=== PATIENT | male | born 1985 | race Caucasian/White ===

== ENCOUNTER 2017-08-17 12:19 | Inpatient (IN) | payer OTHER ==
[~2017-08-17] VITALS: Ht 167.6 cm; Wt 69.9 kg
[2017-08-17] MEDS ORDERED: LISI-661 PO (12:57)
[2017-08-17 13:00] LABS: BASOPHILS % (AUTO) 0.7 % (0.0-2.0); HEMATOCRIT 42.9 % (41-53); HEMOGLOBIN 14.9 g/dL (13.5-17.5); LYMPHOCYTES % (AUTO) 20.9 % (22.0-44.0); MEAN CORPUSCULAR HEMOGLOBIN 28.6 pg (26.0-34.0); MEAN CORPUSCULAR HGB CONC 34.7 G/dL (31.0-37.0); MEAN CORPUSCULAR VOLUME 83 fL (80-100); MONOCYTES # (AUTO) 0.9 K/uL (0.1-1.0); MONOCYTES % (AUTO) 9.5 % (2.0-9.0); NEUTROPHILS # (AUTO) 6.4 K/uL (1.8-7.7); NEUTROPHILS % (AUTO) 65.9 % (40.0-70.0); PLATELET COUNT (AUTO) 264 K/uL (150-450); RED CELL DISTRIBUTION WIDTH 13.4 % (11.5-14.5)
[2017-08-17 13:16] LABS: ANION GAP 7 mmol/L (8-16); CALCIUM, TOTAL 8.8 mg/dL (8.8-10.5); CARBON DIOXIDE 28 mmol/L (22-29); CHLORIDE 106 mmol/L (98-107); CREATININE 0.89 mg/dL (0.60-1.30); GLOMERULAR FILTR. RATE CALC > 60 mL/min (>60); GLUCOSE,RANDOM 92 mg/dL (70-110); POTASSIUM 4.5 mmol/L (3.5-5.1); SODIUM SERUM 141 mmol/L (136-145); UREA NITROGEN, BLOOD 8 mg/dL (7-18)
[2017-08-17 13:22] LABS: ALANINE AMINOTRANSFERASE 23 U/L (12-78); ALBUMIN 4.1 g/dL (3.4-5.0); ALKALINE PHOSPHATASE 50 U/L (46-116); ASPARTATE AMINOTRANSFERASE 17 U/L (15-37); BILIRUBIN,TOTAL 0.6 mg/dL (0.1-1.0); TOTAL PROTEIN, SERUM 7.1 g/dL (6.4-8.2)
[2017-08-17 14:15] LABS: AMPHET/METH SCREEN,URINE NEGATIVE (NEGATIVE); BARBITURATE SCREEN, URINE NEGATIVE (NEGATIVE); BENZODIAZEPINES SCREEN,URINE NEGATIVE (NEGATIVE); CANNABINOID SCREEN,URINE POSITIVE (NEGATIVE); COCAINE SCREEN,URINE NEGATIVE (NEGATIVE); METHADONE SCREEN, URINE NEGATIVE (NEGATIVE); OPIATE SCREEN,URINE NEGATIVE (NEGATIVE)
[2017-08-17] MEDS ORDERED: DiphenhydrAMINE HCL 25 MG CAPSULE PO ONE (14:15)
[2017-08-17] MEDS ORDERED: LORazepam 1 MG TABLET PO ONE (14:15)
[2017-08-17] MEDS ORDERED: HALOPERIDOL 5 MG TABLET PO ONE (14:15)
[2017-08-17 14:16] LABS: PHENCYCLIDINE SCREEN,URINE NEGATIVE (NEGATIVE)
[2017-08-17] MEDS ORDERED: ZOLPIDEM TARTRATE 10 MG TABLET PO PRN (14:45)
[2017-08-17 16:00] LABS: CHOL/HDL RATIO 2.6 (4.2-7.3); CHOLESTEROL 143 mg/dL (131-200); HDL CHOLESTEROL 55 mg/dL (40-60); LDL CHOL (CALC.) 80 mg/dL (0-130); TRIGLYCERIDES 42 mg/dL (15-150)
[2017-08-17 18:41] VITALS: BP 139/81
[2017-08-17] MEDS: LORazepam 2 MG TABLET PO PRN (18:45)
[2017-08-17] MEDS: HALOPERIDOL 5 MG TABLET PO PRN (18:45)
[2017-08-17] MEDS ORDERED: CloNIDine HCL 0.1 MG TABLET PO PRN (22:00)
[2017-08-17] MEDS ORDERED: PETROLATUM,WHITE 71 GM JELLY TP PRN (22:00)
[2017-08-17] MEDS ORDERED: IBUPROFEN 600 MG TABLET PO PRN (22:00)
[2017-08-17] MEDS ORDERED: MAG HYDROX/AL HYDROX/SIMETH ES 30 ML SUSPENSION UDCUP PO PRN (22:00)
[2017-08-17] MEDS ORDERED: BACITRACIN 28.4 GM OINTMENT TP PRN (22:00)
[2017-08-17] MEDS ORDERED: ACETAMINOPHEN 325 MG TABLET PO PRN (22:00)
[2017-08-17] MEDS ORDERED: ALBUTEROL SULFATE HFA 90 MCG/PUFF 8 GM INHALER IH PRN (22:00)
[2017-08-17] MEDS ORDERED: MAGNESIUM HYDROXIDE SUSPENSION 30 ML UDCUP PO PRN (22:00)
[2017-08-17] MEDS ORDERED: LOPERAMIDE HCL 2 MG CAPSULE PO PRN (22:00)
[2017-08-17] MEDS ORDERED: ONDANSETRON HCL 4 MG TABLET PO PRN (22:00)
[2017-08-17] MEDS ORDERED: BENZOCAINE/MENTHOL LOZENGE MM PRN (22:00)
[2017-08-18 06:13] VITALS: BP 145/78
[2017-08-18 07:20] LABS: BASOPHILS % (AUTO) 0.9 % (0.0-2.0); EOSINOPHILS % (AUTO) 4.8 % (1.0-6.0); HEMATOCRIT 44.7 % (41-53); HEMOGLOBIN 15.7 g/dL (13.5-17.5); LYMPHOCYTES # (AUTO) 3.4 K/uL (1.0-4.8); LYMPHOCYTES % (AUTO) 36.2 % (22.0-44.0); MEAN CORPUSCULAR HEMOGLOBIN 29.2 pg (26.0-34.0); MEAN CORPUSCULAR VOLUME 84 fL (80-100); MONOCYTES # (AUTO) 0.8 K/uL (0.1-1.0); MONOCYTES % (AUTO) 9.1 % (2.0-9.0); NEUTROPHILS # (AUTO) 4.6 K/uL (1.8-7.7); PLATELET COUNT (AUTO) 300 K/uL (150-450); RED BLOOD CELL COUNT(AUTO) 5.36 MIL/uL (4.50-5.90); RED CELL DISTRIBUTION WIDTH 13.7 % (11.5-14.5)
[2017-08-18 08:06] VITALS: BP 142/71
[2017-08-18 08:18] LABS: ANION GAP 9 mmol/L (8-16); CALCIUM, TOTAL 9.2 mg/dL (8.8-10.5); CARBON DIOXIDE 29 mmol/L (22-29); CHLORIDE 106 mmol/L (98-107); CHOL/HDL RATIO 2.8 (4.2-7.3); CHOLESTEROL 158 mg/dL (131-200); CREATININE 0.91 mg/dL (0.60-1.30); GLOMERULAR FILTR. RATE CALC > 60 mL/min (>60); GLUCOSE,RANDOM 76 mg/dL (70-110); HDL CHOLESTEROL 56 mg/dL (40-60); LDL CHOL (CALC.) 92 mg/dL (0-130); PHOSPHORUS 4.7 mg/dL (2.5-4.9); POTASSIUM 4.2 mmol/L (3.5-5.1); SODIUM SERUM 144 mmol/L (136-145); THYROID STIMULATING HORMONE 1.31 uIU/mL (0.36-3.74); TRIGLYCERIDES 49 mg/dL (15-150); UREA NITROGEN, BLOOD 8 mg/dL (7-18)
[2017-08-18] MEDS: DOCUSATE SODIUM 100 MG CAPSULE PO SCH (08:34)
[2017-08-18] MEDS: LISINOPRIL 10 MG TABLET PO SCH (08:34)
[2017-08-18] MEDS: OMEPRAZOLE 20 MG CAPSULE PO SCH (08:34)
[2017-08-18] MEDS: DIVALPROEX SODIUM 500 MG DR TABLET PO SCH ×2 (13:19→16:53)
[2017-08-18 16:23] VITALS: BP 134/76
[2017-08-18] MEDS: HALOPERIDOL 5 MG TABLET PO PRN (16:53)
[2017-08-18] MEDS: LORazepam 2 MG TABLET PO PRN (16:53)
[2017-08-19 06:17] VITALS: BP 113/66
[2017-08-19 08:30] VITALS: BP 142/89
[2017-08-19] MEDS: LISINOPRIL 10 MG TABLET PO SCH (09:03)
[2017-08-19] MEDS: OMEPRAZOLE 20 MG CAPSULE PO SCH (09:03)
[2017-08-19] MEDS: DOCUSATE SODIUM 100 MG CAPSULE PO SCH (09:03)
[2017-08-19] MEDS: DIVALPROEX SODIUM 500 MG DR TABLET PO SCH ×2 (09:03→16:53)
[2017-08-19] MEDS: CHOLECALCIFEROL (VIT D3) 1,000 UNITS TABLET PO SCH (09:03)
[2017-08-19] MEDS: LORazepam 2 MG TABLET PO PRN ×2 (09:04→16:53)
[2017-08-19 16:14] VITALS: BP 120/76
[2017-08-19] MEDS: HALOPERIDOL 5 MG TABLET PO PRN (16:53)
[2017-08-20 02:00] VITALS: BP 126/84
[2017-08-20 08:04] VITALS: BP_SYST 107; BP_SYST 139; BP_DIAS 62; BP_DIAS 86
[2017-08-20] MEDS: CHOLECALCIFEROL (VIT D3) 1,000 UNITS TABLET PO SCH (08:27)
[2017-08-20] MEDS: LISINOPRIL 10 MG TABLET PO SCH (08:27)
[2017-08-20] MEDS: OMEPRAZOLE 20 MG CAPSULE PO SCH (08:27)
[2017-08-20] MEDS: DOCUSATE SODIUM 100 MG CAPSULE PO SCH (08:27)
[2017-08-20] MEDS: DIVALPROEX SODIUM 500 MG DR TABLET PO SCH (08:28)
[2017-08-20] MEDS ORDERED: DOCU-119 PO (10:24)
[2017-08-20] MEDS ORDERED: DIVA250T4 PO (10:24)
[2017-08-20] MEDS ORDERED: OMEP10CA41 PO (10:24)
[2017-08-20] MEDS ORDERED: LISI-661 PO (10:25)
[2017-08-20] MEDS ORDERED: VITAD1000 PO (10:25)
== END 2017-08-20 12:51 | disposition home or self-care (01) | DRG 885 ==
LOC: EMS 12:20 → B3A 16:32
PROVIDERS: ATTEND Psychiatry & Neurology Child & Adolescent Psychiatry
DX: F29 Unspecified psychosis not due to a substance or known physiological condition (principal); Z91.19 Patient's noncompliance with other medical treatment and regimen; E55.9 Vitamin D deficiency, unspecified; F31.9 Bipolar disorder, unspecified; F43.10 Post-traumatic stress disorder, unspecified; I10 Essential (primary) hypertension; F41.9 Anxiety disorder, unspecified; F12.90 Cannabis use, unspecified, uncomplicated; Z71.51 Drug abuse counseling and surveillance of drug abuser
CPT/HCPCS: 82306; 83735; 84100; 84443; 99285; G0480